=== PATIENT | female | born 1965 | race Caucasian/White ===

== ENCOUNTER 2017-04-04 17:42 | Emergency (ER) | payer BC, OTHER ==
[~2017-04-04] VITALS: Ht 160 cm; Wt 198.0 kg
[~2017-04-04 17:42] MED LIST: MEDR4PAK3 PO; TAB-TAB PO; TRAM50 PO
[2017-04-04 17:46] VITALS: BP 112/70; PULSE 94; RESP 16; TEMP 98.1; O2SAT 98
--- NOTE | 2017-04-04 18:35 | RADRPT ---
EXAM DATE/TIME: 04/04/2017 18:23 [place] COMPARISON: PELVIS AP ONLY, April 03, 2015, 19:49. INDICATIONS : Posterior right hip pain after slipping and falling in her kitchen. MEDICAL HISTORY : None. SURGICAL HISTORY : None. ENCOUNTER: Initial ACUITY: 1 day PAIN SCORE: 10/10 LOCATION: pelvis FINDINGS: A single frontal view of the pelvis demonstrates no evidence of fracture. The bony pelvic ring is in tact. Bony mineralization is normal. The soft tissues are intact. CONCLUSION: No acute disease. Florentino Krishnan MD on April 04, 2017 at 18:33 Board Certified Radiologist. This report was verified electronically.
--- NOTE | 2017-04-04 19:10 | PD ---
HPI Chief Complaint: Fall Time Seen by Provider: 18:30 Travel History International Travel<30 days: No Contact w/Intl Traveler<30days: No Traveled to known affect area: No History of Present Illness HPI 51-year-old female presents emergency department for evaluation of right buttocks pain status post slip and fall today. Patient denies head injury. No loss of consciousness. She reports no abdominal pain. She denies hip pain. She reports the pain in the buttocks worse with walking and palpation of the area. Relieved with rest. Severity 6-10. PFSH Past Medical History Anemia: Yes (OFF IRON RX 06/24) Arthritis: Yes Cancer: No Diabetes: No Glaucoma: No Hepatitis: No Hiatal Hernia: No Hypertension: No Medical other: Yes (GASTRITIS HX) Psychiatric: No Thyroid Disease: No ?: Not Past Surgical History Section: Yes Gynecologic Surgery: Yes (C SECTION X3) Hysterectomy: Yes Other Surgery: Yes Social History Alcohol Use: Yes (SOCAILLY) Tobacco Use: Yes (1PPD) Substance Use: No Allergies-Medications (Allergen,Severity, Reaction): Coded Allergies: Percocet (Unverified Allergy, Severe, RASH, 04/04/17) Reported Meds & Prescriptions Reported Meds & Active Scripts Active No Active Prescriptions or Reported Medications Review of Systems Except as stated in HPI: all other systems reviewed are Neg General / Constitutional: No: Fever Eyes: No: Visual changes HENT: No: Headaches Cardiovascular: No: Chest Pain or Discomfort Respiratory: No: Shortness of Breath Gastrointestinal: No: Abdominal Pain Genitourinary: No: Dysuria Neurologic: No: Weakness Physical Exam Narrative GENERAL: Well-nourished, well-developed patient. SKIN: Focused skin assessment warm/dry. No areas of ecchymosis or abrasions. HEAD: Normocephalic. Atraumatic EYES: No scleral icterus. No injection or drainage. NECK: Supple, trachea midline. No JVD or lymphadenopathy. CARDIOVASCULAR: Regular rate and rhythm without murmurs, gallops, or rubs. RESPIRATORY: Breath sounds equal bilaterally. No accessory muscle use. GASTROINTESTINAL: Abdomen soft, non-tender, nondistended. MUSCULOSKELETAL: No cyanosis, or edema. The pelvis stable. Patient has pain and point tenderness to the soft tissue of the right buttocks. The right hip is nontender. Full range of motion. 2+ distal pulses. BACK: Nontender without obvious deformity. No CVA tenderness. Data Data Last Documented VS Vital Signs Date Time Temp Pulse Resp B/P Pulse Ox O2 Delivery O2 Flow Rate FiO2 04/04/17 17:46 98.1 94 16 112/70 98 Orders Pelvis, Ap Only (Routine) (04/04/17 ) MDM Medical Decision Making Medical Screen Exam Complete: Yes Emergency Medical Condition: Yes Differential Diagnosis pelvis fracture, Contusion, sprain versus strain, Narrative Course 51-year-old female presents emergency department for evaluation of right buttocks pain status post fall today. Patient denies head injury. No loss of consciousness. She reports no abdominal pain. Pain is worse with ambulating. On physical exam her hip is nontender. She has pain in the right buttocks pelvic area x-ray of the pelvis reveal no fracture. Patient be treated for contusion. Patient agrees to plan. Diagnosis Primary Impression: Contusion Qualified Code: S30.0XXA - Contusion of pelvic region, initial encounter Referrals: Primary Care Physician Additional Instructions: Take [id number] Motrin [id number] milligrams by mouth every 6 hours as needed for pain. Avoid strenuous activity. Follow-up with her primary care doctor for reevaluation. Scripts No Active Prescriptions or Reported Meds Disposition: 01 DISCHARGE HOME Condition: Stable Liat Quezada Apr 04, 2017 19:10
== END 2017-04-04 19:22 | disposition home or self-care (01) ==
LOC: PHEFT 17:42
DX: S30.0XXA Contusion of lower back and pelvis, initial encounter (principal); W01.0XXA Fall on same level from slipping, tripping and stumbling without subsequent striking against object, initial encounter; Y93.9 Activity, unspecified; Y92.9 Unspecified place or not applicable
CPT/HCPCS: 72170; 99283